=== PATIENT | male | born 1995 | race Hispanic/Latino ===

== ENCOUNTER 2018-02-24 19:30 | Emergency (ER) | payer SELFPAY ==
[~2018-02-24] VITALS: Ht 172.7 cm; Wt 78.9 kg
[2018-02-24 20:08] VITALS: BP 141/77
== END 2018-02-24 20:15 | disposition home or self-care (01) ==
LOC: ER 19:30 → EDSEX 19:30 → ER 20:15
DX: K40.90 Unilateral inguinal hernia, without obstruction or gangrene, not specified as recurrent (principal)
CPT/HCPCS: 99282